=== PATIENT | female | born 1950 | race Caucasian/White ===

== ENCOUNTER → 2016-08-01 | Outpatient (CLI) | payer MEDICARE, BC ==
[~2016-08-01] MED LIST: ASPI-611 PO; METO-64 PO; MULT-806 PO; [UNRECOGNIZED DRUG - CODE] PO
== END ==
LOC: WC.BC 09:08
DX: Z12.31 Encounter for screening mammogram for malignant neoplasm of breast (principal); Z80.3 Family history of malignant neoplasm of breast
CPT/HCPCS: 77063; G0202